=== PATIENT | female | born 1995 | race Caucasian/White ===

== ENCOUNTER 2022-03-11 11:20 | Emergency (ER) | payer MEDICAID ==
[~2022-03-11] VITALS: Ht 172.7 cm; Wt 68.0 kg
--- NOTE | 2022-03-11 11:40 | NUR ---
Patient BIBA from home for c/o seizures secondary to non-medication compliance per patient. Patient states "I had one seizure at around 0100 and then a second one at around 1130. The last time I took my Keppra was 2 days ago." Patient is postictal, responsive, VSS, resp even and unlabored. Patient is resting comfortably with seizure pads on pads on gurney. NAD noted at this time.
[2022-03-11 12:00] VITALS: BP_SYST 113
--- NOTE | 2022-03-11 13:00 | NUR ---
No seizure activity at this time. Patient resting comfortably with bilateral seizure pads on raised side rails. No acute distress noted. Vital signs within normal range. Will continue to monitor.
[2022-03-11] MEDS ORDERED: levETIRAcetam 500 MG TABLET PO ONE (14:15)
--- NOTE | 2022-03-11 14:49 | NUR ---
PT VSS RESPIRATIONS EVEN NON LABORED, NO SEIZURE ACTIVITY AT THIS TIME
[2022-03-11 15:20] LABS: BASOPHILS % (AUTO) 0.3 % (0.0-2.0); EOSINOPHILS % (AUTO) 0.1 % (0.0-4.0); HEMATOCRIT 35.7 % (36-48); HEMOGLOBIN 11.6 g/dL (12.0-16.0); LYMPHOCYTES # (AUTO) 1.6 K/uL (1.0-5.5); LYMPHOCYTES % (AUTO) 13.5 % (20.5-51.5); MEAN CORPUSCULAR HEMOGLOBIN 25 pg (27-31); MEAN CORPUSCULAR HGB CONC 33 % (32-36); MEAN CORPUSCULAR VOLUME 75 fL (79.0-98.0); MONOCYTES # (AUTO) 0.9 K/uL (0.0-1.0); MONOCYTES % (AUTO) 7.1 % (1.7-9.3); NEUTROPHILS # (AUTO) 9.5 K/uL (1.8-7.7); PLATELET COUNT (AUTO) 252 K/uL (130-430); RED BLOOD CELL COUNT(AUTO) 4.73 MIL/uL (4.2-6.2); RED CELL DISTRIBUTION WIDTH 14.3 % (9.0-15.0); WHITE BLOOD COUNT (AUTO) 12.1 K/uL (4.8-10.8)
[2022-03-11 16:25] LABS: CALCIUM 8.6 mg/dL (8.4-11.0); CREATININE 0.66 mg/dL (0.55-1.30); POTASSIUM 3.7 mmol/L (3.5-5.1)
[2022-03-11 16:36] LABS: ALBUMIN 3.5 g/dL (3.4-4.8); TOTAL BILIRUBIN 0.2 mg/dL (0.0-1.0)
--- NOTE | 2022-03-11 17:05 | NUR ---
ED LEES at bedside.
--- NOTE | 2022-03-11 17:30 | NUR ---
Patient given written and verbal discharge instructions and verbalizes understanding. ER MD discussed with patient the results and treatment provided. Patient in stable condition. ID arm band removed. IV catheter removed intact and dressing applied, no active bleeding. Patient educated on pain management and to follow up with PMD. Pain Scale 0/10. Opportunity for questions provided and answered. Patient A/Ox4, VSS, resp even and unlabored. NAD noted at this time.
[2022-03-11 17:40] VITALS: BP_SYST 120
== END 2022-03-11 17:40 | disposition home or self-care (01) ==
LOC: SED 11:20
DX: R56.9 Unspecified convulsions (principal)
CPT/HCPCS: 36415; 80053; 83605; 84703; 85025; 99283